=== PATIENT | male | born 1985 | race Caucasian/White ===

== ENCOUNTER 2025-06-13 00:10 | Emergency (ER) | payer BC, SELFPAY ==
--- NOTE | ~2025-06-13 | XR_ITS ---
CLINICAL HISTORY: cough EXAM: One view chest x-ray COMPARISON: None FINDINGS: Normal cardiac, mediastinal, and hilar contours. Normal heart size. No pleural effusion or pneumothorax. Lungs are clear. No acute bone finding. IMPRESSION: 1. No acute cardiopulmonary process demonstrated. This document has been electronically signed by: Leonardo Charles MD on 06/13/2025 01:38:43
[2025-06-13 00:12] VITALS: BP 128/83; PULSE 111; RESP 24; TEMP 37.2; O2SAT 94; BMI 37.7
[2025-06-13 00:36] LABS: MANUAL DIFF FLAG NO
--- NOTE | 2025-06-13 00:37 | ED.URI ---
HPI - URI/Sore Throat General Chief Complaint: Upper Respiratory Symptoms Stated Complaint: sob Time Seen by Provider: 06/13/25 00:21 Source: patient Mode of arrival: ambulatory Limitations: no limitations History of Present Illness ED Provider: [facility] Narrative: 39-year-old otherwise healthy, nonsmoker, reports upper respiratory symptoms, has child at home, feels worse when he lays flat, states had similar presentation in the past that evolved into pneumonia, no ear pain no sore throat no nausea or vomiting reported. Denies history of asthma. No chest pain no pleurisy no hemoptysis. Related Data Previous Rx's ?Medication ?Instructions ?Recorded azithromycin 250 mg tablet See Rx Instructions PO .COMPLEX #6 06/13/25 tabs prednisone 20 mg tablet 40 mg (2 x 20 mg) PO DAILY 5 days 06/13/25 #10 tabs Allergies Allergy/AdvReac Type Severity Reaction Status Date / Time No Known Allergies Allergy Verified 06/13/25 00:15 Review of Systems Constitutional: Constitutional: Reports as per [facility] Social History Social History Advance Directives: No Advance Directives Information Provided: Yes Physical Exam Exam: Exam: General: ?Appears of stated age ? uvula midline, no tonsillar exudates, supple neck otherwise ? ?CV: RRR, no obvious murmurs appreciated ? ?Resp: ?Expiratory wheezing throughout ? Abd: ?Bowel sounds are present, no tenderness no rebound no rigidity ? ?MSK: FROM, strength 5/5 all extremities ? Skin: Warm, dry, intact, ? ?Neuro: ?Alert and oriented x3, moving upper and lower extremities symmetrically, no obvious facial asymmetry noted, cranial nerves 2-12 intact Vital Signs: Vital Signs: Last Vital Signs Temp 99.0 F 06/13/25 00:12 Pulse 91 06/13/25 00:57 Resp 20 06/13/25 00:57 BP 128/83 06/13/25 00:12 Pulse Ox 94 06/13/25 00:12 O2 Del Method Room Air 06/13/25 00:12 BMI result Body Mass Index 37.7 Medications Administered Discontinued Medications Generic Name Dose Route Start Last Admin Trade Name Freq PRN Reason Stop Dose Admin Albuterol Sulfate 2 puff 06/13/25 00:37 06/13/25 00:56 Albuterol Sulfate 90 Mcg 8 Gm Inhaler INHALE 06/13/25 00:38 2 puff ONCE ONE Administration Albuterol Sulfate 5 mg/ 0 mg 06/13/25 00:48 06/13/25 00:56 Albuterol/Ipratropium 3 ml INHALE 06/13/25 00:49 7.5 each ONCE ONE Administration Medical Decision Making Medical Decision Making [facility] Narrative: 12:42 AM 06/13/2025 (Dr. Kuldeep Mckeon): Lung sounds are almost bronchiolitic, has smoke kids at home, chest x-ray to evaluate for pneumonia, no evidence for other ENT infections, not consistent with heart failure, we will start with a nebulizer treatment, possibly steroids and likely azithromycin which has good anti-inflammatory coverage 1:20 AM 06/13/2025 (Dr. Kuldeep Mckeon): Re-evaluated breathing much better Differential Diagnosis Differential Diagnoses: The differential diagnosis associated with the presentation includes (CHF, asthma exacerbation, pneumonia, pneumothorax, bronchitis) Admission/Observation Consideration of admission/observation: Escalation of care including admission/observation considered Lab Data [facility] Lab Attestation statement: I reviewed the patient's lab results. 06/13/25 00:29 06/13/25 00:29 Labs: Lab Results 06/13/25 Range/Units 00:29 WBC 9.6 (4.8-10.8) X10*3/uL RBC 5.36 (4.60-5.80) X10*6/uL Hgb 15.0 (14.0-18.0) g/dl Hct 43.5 (42.0-52.0) % MCV 81.2 (80.0-98.0) fL MCH 28.0 (27.0-33.0) pg MCHC 34.5 (31.0-36.0) g/dl RDW 12.8 (11.0-16.0) % Plt Count 125 L (160-400) X10*3/uL MPV 8.8 L (9.4-12.4) fL Immature Gran % (Auto) 0.3 (0.0-0.4) % Neut % (Auto) 83.0 H (45-73) % Lymph % (Auto) 9.9 L (20-40) % Independence % (Auto) 4.7 (2-11) % Eos % (Auto) 1.9 (0-4) % Baso % (Auto) 0.2 (0-2) % Lymph # (Auto) 1.0 L (1.2-4.9) X10*3/uL Independence # (Auto) 0.5 (0.1-1.2) X10*3/uL Eos # (Auto) 0.2 (0.0-0.4) X10*3/uL Baso # (Auto) 0.0 (0.0-0.2) X10*3/uL Abs Immat Gran (auto) 0.03 (0.00-0.03) X10*3/uL Absolute Neuts (auto) 8.0 (2.0-8.3) x10*3/uL Absolute Nucleated RBC 0.000 (0.0-0.012) X10*3/uL Nucleated RBC % (auto) 0.0 (0.0-0.2) /100WBC Sodium 139 (135-145) mmol/L Potassium 4.2 (3.3-5.1) mmol/L Chloride 107 (96-108) mmol/L Carbon Dioxide 23 (22-29) mmol/L Anion Gap 13 (12-20) BUN 13 (9-16) mg/dL Creatinine 0.69 (0.5-1.4) mg/dL Estim Creat Clear Calc 193.3 Estimated GFR > 60 Random Glucose 113 (60-115) mg/dL Calcium 9.1 (8.4-10.2) mg/dL Total Bilirubin 0.5 (0.0-1.0) mg/dL AST 21 (5-37) U/L ALT 23 (0-40) U/L Alkaline Phosphatase 104 (39-117) U/L Total Protein 7.1 (6.5-8.0) g/dL Albumin 4.4 (3.5-5.0) g/dL COVID-19 (RUPALI) Negative (Negative) COVID-19 Clin Com See Note Influenza Type A (AMANDA) Negative (Negative) Influenza Type B (AMANDA) Negative (Negative) Influenza A & B Note See Note Independent Interpretation I performed an independent interpretation of an: Plain X-Ray (No obvious consolidations, possible atelectasis, no pneumothorax) Prescription Management I considered prescription management with: Antibiotic Discharge Plan Discharge Clinical Impression: Upper respiratory infection Patient Disposition: Home, Self-Care Additional Instructions: Continue steroids for the next few days as prescribed, use Z-Tyrone only if you are not better in the next 48-72 hours Albuterol 2 puffs every 4 hours for the rest of the day tomorrow Worsening issues concerns come back to the ER As discussed chest x-ray on my evaluation without obvious pneumonia, blood work reassuring Prescriptions: New azithromycin 250 mg tablet See Rx Instructions .ROUTE .COMPLEX Qty: 6 0RF Rx Instructions: For 250 mg dose pack: take 500 mg today (day 1), then 250 mg for 4 days (days 2-5) prednisone 20 mg tablet 40 mg PO DAILY 5 Days Qty: 10 0RF Stand Alone Forms: Work/School Release Print Language: Palestinian
[2025-06-13 00:44] LABS: Hematocrit 43.5 % (42.0-52.0); Hemoglobin 15.0 g/dl (14.0-18.0); Imm Gran Abs Auto 0.03 X10*3/uL (0.00-0.03); Imm Gran Pct Auto 0.3 % (0.0-0.4); Lymphocytes Absolute Auto 1.0 X10*3/uL (1.2-4.9); Mean Corpuscular HGB Conc 34.5 g/dl (31.0-36.0); Mean Corpuscular Hemoglobin 28.0 pg (27.0-33.0); Mean Corpuscular Volume 81.2 fL (80.0-98.0); NRBC Abs Auto 0.000 X10*3/uL (0.0-0.012); NRBC Pct Auto 0.0 /100WBC (0.0-0.2); Platelet Count 125 X10*3/uL (160-400); Red Blood Count 5.36 X10*6/uL (4.60-5.80); White Blood Count 9.6 X10*3/uL (4.8-10.8)
[2025-06-13] MEDS: Albuterol Sulfate 5 MG, Albuterol/Iprat 2.5/0.5MG 3 ML 3 ML INHALE (00:56)
[2025-06-13] MEDS: Albuterol Sulfate 90 MCG 8 GM INHALER 2 PUFF INHALE (00:56)
[2025-06-13 00:57] VITALS: PULSE 91; RESP 20; O2SAT 97
[2025-06-13 00:59] LABS: Alanine Aminotransferase 23 U/L (0-40); Albumin Level 4.4 g/dL (3.5-5.0); Alkaline Phosphatase 104 U/L (39-117); Anion Gap 13 (12-20); Aspartate Amino Transferase 21 U/L (5-37); Blood Urea Nitrogen 13 mg/dL (9-16); Calcium 9.1 mg/dL (8.4-10.2); Carbon Dioxide 23 mmol/L (22-29); Chloride 107 mmol/L (96-108); Creatinine Clr Calc Pharmacy 193.3; Estimated Glomerular Filt Rate > 60; Potassium 4.2 mmol/L (3.3-5.1); Sodium 139 mmol/L (135-145); Total Protein 7.1 g/dL (6.5-8.0)
--- OUTSIDE RECORDS SUMMARY | 2025-06-13 01:02 | XMS_ITS | Clinical Summary ---
Author Organization [facility] Address [address] [place] [address] Care Team Providers Care Controls Designer Name Role Phone Kelly Ashley MD Primary Care Provider [phone] Kelly Ashley MD Unavailable [phone] Allergies No known active allergies Medications propafenone (RHTHYMOL) 150 MG tablet Take 1 tablet (150 mg total) by mouth daily as needed (atrial fibrillation, palpitations) Take a second dose after 30 minutes if first dose is ineffective.. 20 tablet 1 2 Active rivaroxaban (XARELTO) 20 mg Tab tabletIndications: NonValvular Atrial Fibrillation Take 1 tablet (20 mg total) by mouth daily. 30 tablet 2 Active pantoprazole (PROTONIX) [address] tabletIndications: Epigastric pain Take 1 tablet (40 mg total) by mouth daily 40 mg once daily; once symptoms are controlled, continue for at least 8 weeks. After 8 weeks, start t taper off if able.. 30 tablet 2 4 Active cholecalciferol, vitamin D3, 1,250 mcg (50,000 unit) capsule Take 1 capsule (50,000 Units total) by mouth once a week for 12 doses. 12 capsule 4 Active venlafaxine ER (EFFEXOR-XR) 37.5 MG 24 hr capsuleIndications :Generalized anxiety disorder with panic attacks Take 1 capsule (37.5 mg total) by mouth daily. 90 capsule 3 4 Active dextroamphetamine- amphetamine (ADDERALL) 10 mg tabletIndications: Attention deficit hyperactivity disorder (ADHD), unspecified ADHD type Take 1 tablet (10 mg total) by mouth every morning & every evening for 30 days. 60 tablet 4 Active Active Problems Patient Care Coordination No te Formatting of this note migh t be different from the original. P Afib (a vlvr-fo-tpl-pocket approach with propafenone. I recommended he take xarelto for 48 hours if he requires propafenone for symptomatic a fib lasting longer than 10 minutes. His CHADS VASc is 0 so he does not require standing anticoagulation) ADHD, APOLLO/depression, obesity Problem Noted Date Diagnosed Date Gastroesophageal reflux disease without esophagi tis 09/01/2023 Epigastric pain 11/28/2022 Assessment & Plan (11/28/2022 4:24 PM EDT): Suspect gastris vs. Hepatobiliary etiology. Check for HPylori and then start on high dose PPI obtian LFts to ensure WNL, if elevated would obtain ultrasound Counseled pt on diet changes to make to help with stomach pain Immunizations Immunization Administration Dates Next Due COVID-19 Vaccine (TreatFeed) - (bivalent formulatio n 2021) 07/16/2022 COVID-19 Vaccine (TreatFeed) Original Formulation (prior to Aug 2021) 08/15/2021 Covid-19 vaccine (COMIRNATY) (Crittercism) 12 yrs+ Influenza Vaccine - EGG FREE MDCK - SDV (FLUCELV AX) 07/30/2023 Influenza Vaccine - STANDARD - SDV (FLUZONE/FLUARIX/FLULAVAL/AFLURIA) 07/30/2021 Tdap Vaccine (BOOSTRIX/ADACEL) 07/30/2021 Family History Medical History Relation Comments Arrhythmia Brother Diabetes Father Hypertension Father Relation Status Comments Brother Father Social History Tobacco Use Types Packs/Day Years Used Date Smoking Tobacco: Never Smokeless Tobacco: Never Tobacco Cessation:Counseling Given: Not Answered Alcohol Use Standard Drinks/Week Comments Yes 0 (1 standard drink = 0.6 oz pur e alcohol) Sex and Gender Information Value Date Recorded Sex Assigned at Male 08/08/2021 7:51 AM EST Legal Sex Male 11:48 PM EDT Gender Identity Male 08/08/2021 7:51 AM EST Sexual Orientation Not on file Last Filed Vital Signs Vital Sign Reading Time Taken Comments Blood Pressure 116/80 08/24/2023 8:02 AM EST Pulse 68 08/24/2023 8:02 AM EST Temperature 37.4 C (99.3 F) 11/28/2022 3:56 PM EDT Respiratory Rate 16 02/28/2021 5:17 AM EDT Oxygen Saturation 97% 04/08/2023 7:38 AM EDT Inhaled Oxygen Concentration - - Weight 125 kg (275 lb) 08/24/2023 8:02 AM EST Height 180.3 cm (5' 11 ) 08/24/2023 8:02 AM EST Body Mass Index 38.35 08/24/2023 8:02 AM EST Plan of Treatment Health Maintenance Due Date Last Done Comments Depression Screening 1990 Hepatitis C Screening 2004 Blood Pressure 08/24/2024 08/24/2023 Influenza Vaccine (#1) 2025 , 07/30/2023, 07/30/2021 DTaP,Tdap,and Td Vaccines (2 - Td or Tdap) 07/30/2031 07/30/2021 COVID-19 Vaccine Completed 06/21/2024, , 07/16/2022, Additional history exists Meningococcal B Vaccines Aged Out No longer eligible based on patient's age to complete this topic Meningococcal Vaccines Aged Out No lo nger eligible based on patient's age to complete this topic Pneumococcal Vaccine Aged Out No long er eligible based on patient's age to complete this topic Care Teams Controls Designer Relationship Specialty Start Date End Date Kelly Ashley MD [address] [place] [address] PCP - General Internal Medicine 07/09/21 Kelly Ashley MD [address] [place] [address] PCP - Insurance Assigned PCP 02/27/22
[2025-06-13 01:16] LABS: COVID-19 Test Negative (Negative); IDNOW Serial# 08D9AD1C
[2025-06-13 01:18] LABS: IDNOW Serial# 6674DD1D; Influenza B2 Negative (Negative)
[2025-06-13 01:35] VITALS: BP 125/67; PULSE 118; RESP 20; TEMP 37.6; O2SAT 93
[2025-06-13 03:44] VITALS: BP 125/67; PULSE 118; RESP 20; TEMP 37.6; O2SAT 93
== END 2025-06-13 01:40 | disposition home or self-care (01) ==
PROVIDERS: Emergency Provider Emergency Medicine
DX: J06.9 Acute upper respiratory infection, unspecified (principal); Z03.818 Encounter for observation for suspected exposure to other biological agents ruled out
CPT/HCPCS: 71045; 80053; 85025; 87502; 87635; 94640; 99283; 99284

== ENCOUNTER → 2025-06-13 00:40 | Outpatient (BNV) | payer BC, SELFPAY | PROVIDERS: Emergency Provider Emergency Medicine; Visit Provider Radiology Diagnostic Radiology | DX: R05.9 Cough, unspecified (principal) | CPT/HCPCS: 71045 ==